=== PATIENT | female | born 1995 | race Caucasian/White ===

== ENCOUNTER 2019-10-10 11:49 | Observation (INO) | payer OTHER, MEDICAID, SELFPAY ==
[2019-10-10] VITALS (17 sets, daily range): BP systolic 101–116; BP diastolic 60–73; PULSE 94–133; RESP 16–18; TEMP 36.8; BMI 25.0
--- NOTE | ~2019-10-10 | US_ITS ---
EXAMINATION: US OB limited DATE: 10/10/2019 23:06 INDICATION: Contractions during third trimester of . TECHNIQUE: Real-time ultrasound of the pelvis was performed. The interpreting radiologist was not pre sent for the study. COMPARISON: None. FINDINGS: There is a single living fetus in vertex presentation. The placenta is fundal and not low-lying with caudal margin 6 cm from the internal cervical os. heart rate is 157 beats per minute (bpm). Th e amniotic fluid index is 14.1 cm, which is normal (5th%-95%: 8.6-24.2 cm at 32 weeks estimated gesta tional age). IMPRESSION: 1. Single living fetus in vertex presentation with heart rate of 157 bpm. 2. Normal amniotic fluid index of 14.1 cm. Reviewed, dictated and finalized at location A. 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 Single living fetus in vertex presentation with heart rate of 157 bpm . 2. Normal amniotic fluid index of 14.1 cm.
[2019-10-10] MEDS: TERBUTALINE SULFATE 1 MG/ML VIAL 0.25 MG SUB-Q ×3 (12:22→16:30)
--- NOTE | 2019-10-10 13:21 | OBADM ---
This patient, Milla Catherine, admitted to the OB room 116 at 1149 for observation for contractions. Patient/family oriented to hospital policies and general routines including ID bracelet, bed and alarms, visiting hours, pain management, procedures, bathroom and other care routines, personal items, smoking policy, room service/diet, and visiting hours. Patient/Family are encouraged to report perceived risks to care and to ask questions if they do not understand what they are told or what they should do.
[2019-10-10 13:25] LABS: Add Urine Microscopic? YES; Appearance Urine Clear (Clear); Bacteria Urine Trace /hpf; Bilirubin Urine Negative (Negative); Blood Urine Negative (Negative); Color Urine Straw (Yellow); Glucose Urine UA Negative (Negative); Ketones Urine Negative (Negative); Leukocyte Esterase Ur Trace LEU/UL (Negative); Nitrate Urine Negative (Negative); Protein Urine Negative (Negative); RBC Urine 0-2 /hpf (0-2); Specific Grav Ur 1.005 (1.001-1.035); Urobilinogen Urine Negative mg/dL (<2.0); WBC Urine 0-3 /hpf
[2019-10-10] MEDS: NIFEdipine 10 MG CAPSULE PO (19:03)
[2019-10-10 19:34] LABS: Fetal Fibronectin Negative
[2019-10-10] MEDS: DEXTROSE 5%/LACTATED RINGERS 500 ML 499.4 ML IV CONT (21:22)
[2019-10-10] MEDS: NIFEdipine 10 MG CAPSULE 20 MG PO (22:36)
--- NOTE | 2019-11-14 12:02 | PM.OBTRLD ---
OB - Triage/Final Diagnosis Evaluation Laboratory results: Laboratory Tests 10/10/19 10/10/19 13:13 19:04 Urine Color Straw Urine Appearance Clear Urine pH 7.0 Ur Specific [place] 1.005 Urine Protein Negative Urine Glucose (UA) Negative Urine Ketones Negative Ur Blood (Man) Negative Urine Nitrate Negative Urine Bilirubin Negative Urine Urobilinogen Negative Leukocyte Esterase Rfl Trace H Urine RBC 0-2 Urine WBC 0-3 Urine Bacteria Trace Fibronectin Negative Final Diagnosis (1) contractions: Code(s): O47.9 - False labor, unspecified Status: Acute
== END 2019-10-10 23:57 | disposition home or self-care (01) ==
PROVIDERS: Admitting Provider Obstetrics & Gynecology Gynecology; PCP Internal Medicine; Visit Provider Obstetrics & Gynecology
DX: O47.03 False labor before 37 completed weeks of gestation, third trimester (principal); Z3A.32 32 weeks gestation of pregnancy
CPT/HCPCS: 76815; 81001; 82731; 96372; A9270; G0378; G0379; J3105; J7121